=== PATIENT | female | born 1990 | race Caucasian/White ===

== ENCOUNTER → 2019-01-03 09:37 | Outpatient (CLI) | payer SELFPAY ==
[2019-01-03 10:18] LABS: Add Manual Diff / Slide Review NO; Basophils Absolute Auto 0 /uL (0-100); Basophils Percent Auto 0.4 % (0-2); Eosinophils Absolute Auto 0 /uL (0-450); Eosinophils Percent Auto 0.1 % (2-4); Hematocrit 37.7 % (36-46); Hemoglobin 12.8 g/dL (12.0-16.0); Lymphocytes Absolute Auto 1800 /uL (1100-4500); Lymphocytes Percent Auto 35.6 % (25-40); Mean Corpuscular Hemoglobin 27.9 PG (26-34); Mean Corpuscular Volume 82.1 fL (80-100); Monocytes Absolute Auto 300 /uL (0-900); Monocytes Percent Auto 6.1 % (3-14); Neutrophils Absolute Auto 3000 /uL (1500-7000); Neutrophils Percent Auto 57.8 % (50-75); Platelet Count 292 X10^3/uL (150-400); Red Blood Cell Count 4.59 X10^6/uL (4.0-5.2); Red Cell Distribution Width 12.2 % (11.6-14.8); White Blood Cell Count 5.1 X10^3/uL (4.5-11.0)
[2019-01-03 10:54] LABS: Alanine Aminotransferase 18 IU/L (9-52); Albumin 4.3 g/dL (3.5-5.0); Albumin Globulin Ratio 1.4 (1.0-2.8); Alkaline Phosphatase 65 U/L (38-126); Aspartate Aminotransferase 20 IU/L (14-36); BUN Creatinine Ratio 11.3 (6-22); Bilirubin Total 0.3 mg/dL (0.2-1.3); Blood Urea Nitrogen 9 mg/dL (7-17); Calcium 9.4 mg/dL (8.4-10.2); Carbon Dioxide 26 mmol/L (22-32); Chloride 101 mmol/L (98-107); Cholesterol 202 mg/dL (140-199); Estimated Glomerular Filt Rate > 60.0 mL/min (>60); Globulin 3.1 g/dL (1.7-4.1); Glucose 78 mg/dL (70-100); HDL Cholesterol 88 mg/dL (40-60); HEMOLYSIS < 15 (0-50); LDL Cholesterol Calculated 85 mg/dL (<100); Potassium 3.8 mmol/L (3.4-5.1); Sodium 136 mmol/L (137-145); Total Protein 7.4 g/dL (6.3-8.2); Triglycerides 143 mg/dL (35-150)
[2019-01-03 11:18] LABS: TSH w/ Reflex to FT4 1.06 uIU/mL (0.47-4.68)
[2019-01-03 11:35] LABS: Vitamin B12 632 pg/mL (239-931)
== END ==
PROVIDERS: Visit Provider Student in an Organized Health Care Education/Training Program
DX: M79.7 Fibromyalgia (principal); F41.9 Anxiety disorder, unspecified; Z13.220 Encounter for screening for lipoid disorders; Z13.228 Encounter for screening for other metabolic disorders
CPT/HCPCS: 36415; 80053; 80061; 82607; 84443; 85025

== ENCOUNTER 2019-03-26 20:28 | Emergency (ER) | payer OTHER, SELFPAY ==
[2019-03-26 20:39] VITALS: BP 110/72; PULSE 100; RESP 18; TEMP 36.6; O2SAT 99
--- NOTE | 2019-03-26 21:28 | ED_ITS ---
HPI - Extremity Injury (Lower) General Chief Complaint: Extremity Injury, Lower Stated Complaint: lower legs pain Time Seen by Provider: 03/26/19 20:52 Source: patient Mode of arrival: ambulatory Limitations: no limitations History of Present Illness HPI Narrative: [age] year female here for evaluation of bilateral lower leg pain. She states that she was run into by her dog earlier this evening. She did not fall. She has been able to ambulate afterwards however with pain. Has not tried anything for symptoms prior to arrival. Also complains of bilateral ankle bilateral foot pain. No prior injuries. Review of Systems Constitutional Denies headache(s) ENT Ears, Nose, Mouth, and Throat: Denies headache(s) Cardiovascular Denies chest pain and Denies dyspnea Respiratory Denies dyspnea Gastrointestinal Gastrointestinal: Denies abdominal pain Musculoskeletal Comments: Bilateral lower leg pain Integumentary/Breasts Denies rash Neurologic Denies headache(s) Hematologic/Lymphatic Denies easy bleeding and Denies easy bruising [facility] Medical History Fibromyalgia (Acute) Social History Smoking Status: Never smoker Social History Smoking Status: Never smoker Exam Initial Vital Signs Initial Vital Signs: Vital Signs Temperature 97.9 F 03/26/19 20:39 Pulse Rate 100 H 03/26/19 20:39 Respiratory Rate 18 03/26/19 20:39 Blood Pressure 110/72 03/26/19 20:39 Pulse Oximetry 99 03/26/19 20:39 Const General: cooperative, well developed, well groomed and No acute distress Orientation: alert, awake and oriented x3 Resp Effort & Inspection: normal respiratory effort Skin Lesions: no lesions Rashes: no rashes Extrem Other: No abnormalities found on bilateral lower extremity exam except for tenderness to bilateral anterior shins. Psych Appearance: grossly normal and well kempt Course Vital Signs - 8 hr 03/26/19 20:39 03/26/19 21:35 Temperature 97.9 F Pulse Rate 100 H 91 H Respiratory Rate 18 18 Blood Pressure 110/72 Pulse Oximetry 99 100 MDM - Extremity Injury (Lower) MDM Narrative Medical decision making narrative: Low suspicion for fracture, low suspicion for tendon injury, low suspicion for cellulitis, discuss also the patient. Provided her with reassurance. Will hold on any x-rays. Patient was given follow-up instructions. She expressed understanding and agreement with plan. Discharge Plan Departure Patient Disposition: Home Clinical Impression: Leg pain, bilateral Discharge Date/Time: 03/26/19 21:35 Interventions: ED Discharge Assessment Last Done: 03/26/19 21:35 Instructions: How To Perform RICE (Rest, Ice, Compress, Elevate) Activity Restrictions/Additional Instructions: You have no restrictions on your activity. Return to the emergency department for any new or worsening symptoms
[2019-03-26 21:35] VITALS: PULSE 91; RESP 18; O2SAT 100
== END 2019-03-26 21:35 | disposition home or self-care (01) ==
PROVIDERS: Emergency Provider Emergency Medicine
DX: M79.662 Pain in left lower leg (principal); M79.661 Pain in right lower leg
CPT/HCPCS: 99282

== ENCOUNTER → 2019-05-03 10:35 | Outpatient (CLI) | payer BC, SELFPAY ==
--- NOTE | 2019-05-03 | DI.US.S_ITS ---
PROCEDURE: US TRANSVAGINAL COMPARISON: None. INDICATIONS: PELVIC AND PERINEAL PAIN FINDINGS: Both transabdominal and transvaginal scanning were performed. The uterus is anteverted, measuring up to 3.4 x 3.8 x 6.1 cm. The endometrial lining thickness is normal at 8.6 mm. There is a suspected endometrial polyp, somewhat indistinctly marginated, measuring 8 x 6 x 10 mm. The ovaries appear normal, measuring 1.5 x 2.7 x 2.5 cm on the right and 1.4 x 2.3 x 3.0 cm on the left. IMPRESSION: Suspected endometrial polyp measuring up to 8 x 6 x 10 mm, within the endometrial lining. No myometrial or ovarian pathology is found. Dictated by: Ed Etienne M.D. on 05/03/2019 at 14:47 Approved by: Ed Etienne M.D. on 05/03/2019 at 14:50
== END ==
PROVIDERS: PCP Physician Assistant; Visit Provider Physician Assistant
DX: R10.2 Pelvic and perineal pain (principal)
CPT/HCPCS: 76830

== ENCOUNTER → 2019-05-06 12:31 | Outpatient (CLI) | payer BC, SELFPAY ==
--- NOTE | 2019-05-06 | DI.RAD.S_ITS ---
PROCEDURE: XR KNEE RT 1TO2V INDICATIONS: ARTHRALGIA TECHNIQUE: 3 views of the knee were acquired. COMPARISON: None. FINDINGS: Bones: No fractures or dislocations. No suspicious bony lesions. Soft tissues: No joint effusion. No suspicious soft tissue calcifications. IMPRESSION: Joints are well maintained and no inflammatory arthritic changes. Dictated by: Carmine BUSTOS Interpreted: Jose Carlos Patton MD on 05/06/2019 at 13:40 Approved by: Jose Carlos Patton M.D. on 05/06/2019 at 15:15
--- NOTE | 2019-05-06 | DI.RAD.S_ITS ---
PROCEDURE: XR ANKLE RT 2V INDICATIONS: ARTHRALGIA TECHNIQUE: 3 views of the ankle were acquired. COMPARISON: [facility], CR, XR ANKLE LT 2V, 05/06/2019, 12:57. FINDINGS: Bones: No fractures or dislocations. Ankle mortise is normally aligned. No suspicious bony lesions. Soft tissues: No tibiotalar joint effusion. Achilles tendon appears normal. IMPRESSION: Joints are well maintained and no inflammatory arthritic changes. Dictated by: Carmine Salcido [facility] Interpreted: Jose Carlos Patton MD on 05/06/2019 at 13:41 Approved by: Jose Carlos Patton M.D. on 05/06/2019 at 15:14
--- NOTE | 2019-05-06 | DI.RAD.S_ITS ---
PROCEDURE: XR KNEE LT 1TO2V INDICATIONS: ARTHRALGIA TECHNIQUE: 2 views of the knee were acquired. COMPARISON: [facility], CR, XR KNEE RT 1TO2V, 05/06/2019, 12:57. FINDINGS: Bones: No fractures or dislocations. No suspicious bony lesions. Soft tissues: No joint effusion. No suspicious soft tissue calcifications. IMPRESSION: Joints are well maintained and no inflammatory arthritic changes. Dictated by: Carmine Salcido [facility] Interpreted: Jose Carlos Patton MD on 05/06/2019 at 13:42 Approved by: Jose Carlos Patton M.D. on 05/06/2019 at 15:14
--- NOTE | 2019-05-06 | DI.RAD.S_ITS ---
PROCEDURE: XR ANKLE LT 2V INDICATIONS: ARTHRALGIA TECHNIQUE: 3 views of the ankle were acquired. COMPARISON: [facility], CR, XR ANKLE RT 2V, 05/06/2019, 12:57. FINDINGS: Bones: No fractures or dislocations. Ankle mortise is normally aligned. No suspicious bony lesions. Soft tissues: No tibiotalar joint effusion. Achilles tendon appears normal. IMPRESSION: Joints are well maintained and no inflammatory arthritic changes. Dictated by: Carmine Salcido [facility] Interpreted: Jose Carlos Patton MD on 05/06/2019 at 13:40 Approved by: Jose Carlos Patton M.D. on 05/06/2019 at 15:14
== END ==
PROVIDERS: PCP Student in an Organized Health Care Education/Training Program; Visit Provider Student in an Organized Health Care Education/Training Program
DX: M25.572 Pain in left ankle and joints of left foot (principal); M25.571 Pain in right ankle and joints of right foot; M25.562 Pain in left knee; M25.561 Pain in right knee
CPT/HCPCS: 73560; 73600

== ENCOUNTER → 2019-10-18 11:08 | Outpatient (CLI) | payer BC, SELFPAY ==
[2019-10-21 15:43] LABS: Beef f27 IgG 16.6 mcg/mL (< 2.0); Casein (f78) IgG 7.1 mcg/mL (< 2.0); Codfish f3 IgG < 2.0 mcg/mL (< 2.0); Egg White (f1) IgG 14.1 mcg/mL (< 2.0); Maize/Corn f8 IgG 3.7 mcg/mL (< 2.0); Orange f33 IgG 2.5 mcg/mL (< 2.0); Peanut f13 IgG 2.5 mcg/mL (< 2.0); Pork f26 IgG 3.3 mcg/mL (< 2.0); Soybean f14 IgG 3.1 mcg/mL (< 2.0); Wheat (f4) IgG 9.6 mcg/mL (< 2.0)
== END ==
PROVIDERS: PCP Student in an Organized Health Care Education/Training Program; Visit Provider Physician Assistant
DX: T88.7XXA Unspecified adverse effect of drug or medicament, initial encounter (principal)
CPT/HCPCS: 36415; 82785; 86001; 86003

== ENCOUNTER → 2019-11-01 08:21 | Outpatient (CLI) | payer BC, SELFPAY | PROVIDERS: PCP Student in an Organized Health Care Education/Training Program; Referring Provider Physician Assistant; Visit Provider Physician Assistant | DX: T88.7XXA Unspecified adverse effect of drug or medicament, initial encounter (principal) | CPT/HCPCS: 36415; 86003 ==